=== PATIENT | female | born 1955 | race Two or more races ===

== ENCOUNTER 2023-06-18 07:05 | Day surgery (SDC) | payer OTHER ==
[~2023-06-18 07:05] MED LIST: ATACAND16 MG PO
[2023-06-18] MEDS ORDERED: MACROBID 100 M100 MG PO (10:26)
[2023-06-18] MEDS ORDERED: TRAM1TAB98 PO (10:27)
== END 2023-06-18 13:30 | disposition home or self-care (01) ==
LOC: CIR.AMB 07:05
PROVIDERS: ATTEND Obstetrics & Gynecology Gynecology
DX: N81.11 Cystocele, midline (principal); I10 Essential (primary) hypertension; Z20.822 Contact with and (suspected) exposure to COVID-19